=== PATIENT | male | born 1985 | race Caucasian/White ===

== ENCOUNTER 2018-07-20 15:12 | Emergency (ER) | payer MEDICAID ==
[~2018-07-20] VITALS: Ht 188 cm; Wt 68.0 kg
[2018-07-20 15:54] VITALS: BP 144/97
[2018-07-20] MEDS ORDERED: HYDR-4353 PO (16:43)
== END 2018-07-20 17:01 | disposition home or self-care (01) ==
LOC: ER 15:13
DX: S00.12XA Contusion of left eyelid and periocular area, initial encounter (principal); S00.11XA Contusion of right eyelid and periocular area, initial encounter; J32.0 Chronic maxillary sinusitis; J32.2 Chronic ethmoidal sinusitis; Y04.8XXA Assault by other bodily force, initial encounter; Y93.89 Activity, other specified; Y92.89 Other specified places as the place of occurrence of the external cause; Y99.8 Other external cause status
CPT/HCPCS: 99282; 99283

== ENCOUNTER 2020-01-21 11:39 | Emergency (ER) | payer MEDICAID ==
[~2020-01-21] VITALS: Ht 188 cm; Wt 72.7 kg
[2020-01-21 12:26] VITALS: BP 129/58
[2020-01-21] MEDS ORDERED: BACDS PO (12:58)
[2020-01-21] MEDS ORDERED: CEPH250T PO (12:58)
--- NOTE | 2020-01-21 14:17 | NUR ---
pt seen and dc'd by provider
== END 2020-01-21 13:40 | disposition home or self-care (01) ==
LOC: ER 11:39
DX: L08.89 Other specified local infections of the skin and subcutaneous tissue (principal); F41.9 Anxiety disorder, unspecified; Z59.0 Homelessness; Z79.899 Other long term (current) drug therapy
CPT/HCPCS: 99284

== ENCOUNTER 2020-05-28 10:41 | Emergency (ER) | payer MEDICAID ==
[~2020-05-28] VITALS: Ht 188 cm; Wt 72.7 kg
[2020-05-28 12:58] LABS: BASOPHILS % (AUTO) 0.7 % (0-1); EOSINOPHILS % (AUTO) 0.6 % (0-6); HEMATOCRIT 40.2 % (42.0-52.0); HEMOGLOBIN 13.4 g/dl (14.0-17.9); LYMPHOCYTES % (AUTO) 19.7 % (21-51); MEAN CORPUSCULAR HEMOGLOBIN 32.4 PG (27.0-31.0); MEAN CORPUSCULAR HGB CONC 33.3 g/dL (33.0-36.5); MEAN CORPUSCULAR VOLUME 97.3 FL (78-98); MEAN PLATELET VOLUME 8.6 FL (7.4-10.4); MONOCYTES # (AUTO) 0.4 X10'3 (0-0.9); MONOCYTES % (AUTO) 7.9 % (2-12); NEUTROPHILS # (AUTO) 3.4 X10'3 (1.8-7.7); NEUTROPHILS % (AUTO) 71.1 % (42-75); PLATELET COUNT 212 X10'3 (140-440); RED BLOOD COUNT 4.13 X10'6 (4.70-6.10); RED CELL DISTRIBUTION WIDTH 14.4 % (11.5-14.5); WHITE BLOOD COUNT 4.8 X10'3 (4.5-11.0)
[2020-05-28 13:08] LABS: PARTIAL THROMBOPLASTIN TIME 26 SECONDS (22-32)
[2020-05-28 13:09] LABS: ALANINE AMINOTRANSFERASE 93 U/L (12-78); ALBUMIN 2.6 G/DL (3.4-5.0); ALBUMIN/GLOBULIN RATIO 0.9 (1.1-1.5); ALKALINE PHOSPHATASE 135 IU/L (46-116); ANION GAP 5 (8-16); ASPARTATE AMINO TRANSFERASE 65 U/L (10-37); BILIRUBIN,TOTAL 0.3 MG/DL (0.1-1.0); BLOOD UREA NITROGEN 15 MG/DL (7-18); BUN/CREATININE RATIO 16.1 (5.4-32.0); CALCIUM 8.4 MG/DL (8.5-10.1); CHLORIDE 107 MMOL/L (99-107); CREATININE 0.93 MG/DL (0.60-1.10); GLUCOSE 99 MG/DL (70-104); POTASSIUM 3.7 MMOL/L (3.5-5.1); SODIUM 142 MMOL/L (135-145); TOTAL CARBON DIOXIDE 30.4 MMOL/L (24-32); TOTAL PROTEIN 5.5 G/DL (6.4-8.2); eGFR > 90 ML/MIN
[2020-05-28] MEDS ORDERED: furosemide 20MG tablet PO ONE (13:55)
[2020-05-28] MEDS ORDERED: FURO-150 PO (13:57)
[2020-05-28] MEDS ORDERED: CEPH500C5 PO (13:57)
--- NOTE | 2020-05-28 14:18 | NUR ---
Ed [phone]
[2020-05-28 14:35] VITALS: BP 108/75
== END 2020-05-28 15:08 | disposition home or self-care (01) ==
LOC: ER 10:42
DX: M79.672 Pain in left foot (principal); M79.671 Pain in right foot; R06.02 Shortness of breath; I50.9 Heart failure, unspecified; R60.0 Localized edema; F41.9 Anxiety disorder, unspecified; Z59.0 Homelessness
CPT/HCPCS: 36415; 71045; 80053; 83880; 84484; 85025; 85610; 85730; 93005; 99285